=== PATIENT | male | born 1980 | race Caucasian/White ===

== ENCOUNTER 2023-01-14 17:05 | Emergency (ER) | payer OTHER, SELFPAY ==
--- NOTE | ~2023-01-14 | CT_ITS ---
EXAMINATION: CT brain wo con DATE: 01/14/2023 22:43 INDICATION: fall, hit head . TECHNIQUE: Computed tomography (CT) of the head was performed without intravenous contrast. The mA wa s adjusted according to patient size. Iterative reconstruction technique was employed. The dose-lengt h product was 681.00 mGy-cm. COMPARISON: None. FINDINGS: No acute intracranial hemorrhage or extra-axial fluid collection. No hydrocephalus, mass, or herniation. No acute ischemic infarct. Unremarkable dural venous sinus attenuation. No acute osseous abnormality. Complete bilateral mastoid opacification, with partial opacification of the bilateral middle ear comp artments. The remaining aerated spaces are clear. IMPRESSION: No acute intracranial process. Possible bilateral otomastoiditis. Reviewed, dictated and finalized at location K.
--- NOTE | ~2023-01-14 | CT_ITS ---
EXAMINATION: CT cervical spine wo con DATE: 01/14/2023 22:46 INDICATION: fall, neck pain TECHNIQUE: Computed tomography (CT) of the cervical spine was performed without intravenous contrast. Automated exposure control and iterative reconstruction technique were employed. The dose-length pro duct was 494.94 mGy-cm. COMPARISON: None. FINDINGS: Vertebral Body Alignment: Intact. Craniocervical and atlantoaxial alignment: Mild degenerative change. Alignment intact. Osseous structures/fracture: No evidence of a lytic or blastic process in the visualized spine. No e vidence of acute fracture. Cervical soft tissues: The paraspinal soft tissues planes are maintained. 2.2 cm right thyroid nodule . Degenerative changes: No significant degenerative changes. IMPRESSION: No acute fracture or traumatic malalignment in the cervical spine. 2.2 cm right thyroid nodule, recommend nonemergent outpatient thyroid ultrasound for further characte rization. Reviewed, dictated and finalized at location K. IMPRESSION: No acute fracture or traumatic malalignment in the cervical spine. 2.2 cm right thyroid nodule, recommend nonemergent outpatient thyroid ultrasoun d for further characterization.
[2023-01-14 17:20] VITALS: BP 142/92; PULSE 80; RESP 16; TEMP 36.4; O2SAT 99
--- NOTE | 2023-01-14 17:23 | ECG_ITS ---
Measurements Intervals Swan Rate: 71 P: 47 KS: 155 QRS: 57 QRSD: 108 T: 35 QT: 353 QTc: 384 Interpretive Statements SINUS RHYTHM NONSPECIFIC ST AND T-WAVE ABNORMALITY NO PREVIOUS ECG AVAILABLE FOR COMPARISON Electronically Signed On 01-15-2023 14:31:28 CDT by Yolande Webster M.D.
[2023-01-14 17:37] LABS: Basophils Percent Auto 0.2 % (0.2-1.2); Eosinophils Absolute Auto 0.1 K/mm3 (0-0.3); Eosinophils Percent Auto 1.5 % (0-4.4); Hematocrit 44.8 % (42.0-52.0); Hemoglobin 15.3 g/dL (14.0-18.0); Immature Granulocyte Absolute 0.02 K/mm3 (0.00-0.031); Immature Granulocyte Percent A 0.2 % (0-0.5); Lymphocytes Absolute Auto 2.27 K/mm3 (0.9-3.2); Lymphocytes Percent Auto 26.3 % (18.3-44.2); Mean Corpuscular HGB Conc 34.2 g/dl (32-36); Mean Corpuscular Hemoglobin 31.4 pg (26-34); Mean Corpuscular Volume 91.8 fl (80-100); Mean Platelet Volume 9.6 fl (7.4-10.4); Monocytes Absolute Auto 0.6 K/mm3 (0.1-0.6); Monocytes Percent Auto 6.9 % (2.6-8.5); Neutrophils Absolute Auto 5.6 K/mm3 (1.3-6.7); Neutrophils Percent Auto 64.9 % (45.5-73.1); Platelet Count Result 314 k/mm3 (150-375); Red Blood Count 4.88 M/mm3 (4.6-6.20); Red Cell Distribution Width 12.2 % (11.5-14.5); White Blood Count 8.6 K/mm3 (4.5-10.0)
[2023-01-14 17:52] LABS: Alanine Aminotransferase 35 U/L (6-50); Albumin Level 4.7 g/dL (3.5-5.1); Alkaline Phosphatase 76 U/L (38-126); Anion Gap 7 mmol/L (8-16); Aspartate Amino Transferase 27 U/L (17-59); Bilirubin,Total 0.3 mg/dL (0.2-1.3); Blood Urea Nitrogen 14 mg/dL (9-20); Calcium 9.7 mg/dL (8.4-10.2); Carbon Dioxide 27 mmol/L (22-30); Chloride 106 mmol/L (98-107); Estimated CRCL calculation 121 ml/min; Estimated Glomerular Filt Rate > 60; Glucose 122 mg/dL (65-110); Potassium 3.9 mmol/L (3.4-5.0); Sodium 140 mmol/L (137-145)
--- NOTE | 2023-01-14 22:33 | ED.SYNCOPE ---
HPI - Syncope General Chief Complaint: Syncope <Jeaneth Hernandez PA-C - Last Filed: 01/15/23 00:40> Stated Complaint: passed out at home a couple hours ago <Jeaneth Hernandez PA-C - Last Filed: 01/15/23 00:40> Time Seen by Provider: 01/14/23 21:30 <Jeaneth Hernandez PA-C - Last Filed: 01/15/23 00:40> History of Present Illness HPI narrative: 42-year-old male with a history of hyperlipidemia and hypertension reports for evaluation after syncopal episode that occurred a couple of hours prior to arrival. Patient states he was sitting on the couch playing video games on his phone when he experienced tunnel vision and nausea. States he stood up to walk to the kitchen to get a glass of water and lost consciousness. Reports he collapsed to the ground. His who is present in the exam room witnessed the fall and states she saw the patient hit her head. Reports the patient was out for <30 seconds. She denied seizure-like activity, urinary incontinence, tongue biting. Patient denies history of syncope in the past. He denies chest pain or palpitations, focal numbness or weakness, fever. He is reporting a mild headache and neck pain since the fall but is denying extremity pain, chest pain or shortness of breath, abdominal pain, back pain, focal numbness or weakness, palpitations. Patient states he woke up and returned back to his baseline quickly. <BRANDEN Dunaway Last Filed: 01/15/23 00:40> Related Data Allergies/Adverse Reactions: Allergies Allergy/AdvReac Type Severity Reaction Status Date / Time No Known Allergies Allergy Verified 12/24/22 08:30 <Jaeneth Hernandez PA-C - Last Filed: 01/15/23 00:40> Review of Systems Review of Systems: CONSTITUTIONAL: Denies fever, chills EYES: Denies visual changes, redness, or discharge. ENT: Denies rhinorrhea, congestion, sore throat, or otalgia. CARDIOVASCULAR: Denies chest pain, palpitations, or edema. RESPIRATORY: Denies cough or dyspnea. GASTROINTESTINAL: Denies abdominal pain, nausea, vomiting, or diarrhea. GENITOURINARY: Denies dysuria or hematuria. SKIN: Denies rash or itching. MUSCULOSKELETAL: Denies back pain, joint pain, or myalgia. NEUROLOGIC: See HPI PSYCHIATRIC: Denies anxiety or depression. <Jeaneth Hernandez PA-C - Last Filed: 01/15/23 00:40> [facility] Social History Social History: Social History Smoking status: Current every day smoker Tobacco type: cigarettes Alcohol intake: current Substance use: never Lack of Transportation: No Lack of Food: Never True Current Housing: I Have Housing Concerned About Future Housing: No Difficulty Paying Gas/Electric Bills: No Difficulty Paying for Meds: No Currently Unemployed: No Education: High School Diploma/GED Difficulty w/ Childcare or Family Care: No Living arrangements: with family Gender identity (if verbalized by the patient): Male <Jeaneth Hernandez PA-C - Last Filed: 01/15/23 00:40> Exam Narrative: GENERAL: Well-appearing, in no acute distress. Patient resting comfortably in exam bed. He is pleasant and conversational HEAD: Normocephalic EYES: PERRLA, EOMI ENT: Nares clear. Mucous membranes moist. Oropharynx without tonsillar hypertrophy exudate or other lesions. Bilateral TMs are medrano nonbulging. No tenderness over mastoid processes. NECK: No cervical midline tenderness, step-offs or deformities. Tenderness to the right paraspinous muscles without overlying skin changes. BACK: No midline thoracolumbar spinous tenderness, step-offs or deformities CHEST: No respiratory distress. Clear to auscultation, no adventitious breath sounds. HEART: Regular rate and rhythm. No murmur heard. Normal peripheral pulses. ABDOMEN: Soft, nontender, normal active bowel sounds. EXTREMITIES: Normal range of motion. No edema. SKIN: Warm, dry, no rash. NEURO: No focal deficits. Alert and oriented x3.
[2023-01-15 00:01] VITALS: PULSE 60
[2023-01-15 00:17] VITALS: BP 118/83; PULSE 60
[2023-01-15 00:18] VITALS: BP 116/79; PULSE 56
[2023-01-15 00:20] VITALS: BP 124/89; PULSE 68
== END 2023-01-15 00:54 | disposition home or self-care (01) ==
PROVIDERS: Emergency Medicine; Emergency Provider Physician Assistant; PCP Emergency Medicine
DX: R55 Syncope and collapse (principal); I10 Essential (primary) hypertension; E78.5 Hyperlipidemia, unspecified; F17.210 Nicotine dependence, cigarettes, uncomplicated; R94.31 Abnormal electrocardiogram [ECG] [EKG]; E04.1 Nontoxic single thyroid nodule; R93.0 Abnormal findings on diagnostic imaging of skull and head, not elsewhere classified
CPT/HCPCS: 36415; 70450; 72125; 80053; 85025; 93005; 99284

== ENCOUNTER → 2023-01-21 07:54 | Outpatient (CLI) | payer OTHER, SELFPAY ==
--- NOTE | ~2023-01-21 | US_ITS ---
US thyroid INDICATION: Nontoxic thyroid nodule TECHNIQUE: Real-time sonographic images of the thyroid gland were obtained. COMPARISON: No prior studies for comparison. FINDINGS: The right thyroid lobe measures 5.5 x 1.9 x 2.4 cm. The left thyroid lobe measures 5 x 1.6 x 1.9 cm. There is normal echotexture and echogenicity throughout the thyroid gland. There is a comp jannie heterogeneous predominantly hypoechoic solid right thyroid mass measuring 2.8 x 2.5 x 1.2 cm. Thi s mass is wider than tall, smoothly marginated without internal echogenic foci, TR 4. There is a 5 mm cyst of the left thyroid lobe. There is a 4 mm cyst of the isthmus on the left. IMPRESSION: 1. Solid right thyroid mass measuring 2.8 cm, TR 4. Ultrasound-guided fine-needle aspiration biopsy recommended. Reviewed, dictated and finalized at location B. IMPRESSION: 1. Solid right thyroid mass measuring 2.8 cm, TR 4. Ultrasound-guided fine-nee dle aspiration biopsy recommended.
== END ==
PROVIDERS: PCP Emergency Medicine; Visit Provider Nurse Practitioner Family
DX: E04.1 Nontoxic single thyroid nodule (principal)
CPT/HCPCS: 76536

== ENCOUNTER 2023-02-25 12:32 | Outpatient (CLI) | payer OTHER, SELFPAY ==
--- NOTE | ~2023-02-25 | US_ITS ---
EXAMINATION: US FNA w image guidance DATE: 02/25/2023 13:26 INDICATION: Thyroid mass TECHNIQUE: A time-out was performed to verify the patient's name, date of , and procedure to be performed . The procedure and its benefits and risks were discussed with the patient. Risks specifically discus sed included bleeding and infection. The patient understood the risks and agreed to proceed. The neck was prepped and draped in the usual sterile manner. 3 mL 1% lidocaine was used for local anesthesia . 6 passes were made with a 25G needle into the lesion. Appropriate needle location was documented with continuous sonographic guidance. A sterile bandage was applied. There were no immediate compli cations. FINDINGS: Grayscale ultrasound images demonstrate biopsy needles advanced into a 2.9 cm heterogeneous hypoechoi c and hyperechoic TI-RADS 4 right thyroid mass. IMPRESSION: 1. Successful ultrasound-guided fine needle aspiration of a 2.9 cm TI RADS 4 right thyroid mass. Reviewed, dictated and finalized at location A. IMPRESSION: 1. Successful ultrasound-guided fine needle aspiration of a 2.9 cm TI RADS 4 r ight thyroid mass.
== END 2023-02-25 12:33 | disposition home or self-care (01) ==
PROVIDERS: PCP Emergency Medicine; Visit Provider Nurse Practitioner Family
DX: E07.9 Disorder of thyroid, unspecified (principal)
CPT/HCPCS: 10005; 88173; 88305